=== PATIENT | female | born 1945 | race Caucasian/White ===

== ENCOUNTER → 2017-02-15 | Outpatient (CLI) | payer MEDICARE ==
--- NOTE | 2017-02-15 11:17 | RAD ---
DATE: 02/15/2017 EXAM: MAMMO SINA SCREENING BILATERAL HISTORY: Routine screening COMPARISON: 01/17/2016 This study was interpreted with the benefit of Computerized Aided Detection (CAD). FINDINGS: Breast Density: SCATTERED The breast parenchyma shows scattered fibroglandular densities. Breast parenchyma level B. There are no dominant suspicious masses, suspicious microcalcifications or evidence of architectural distortion. Small nodule identified in the left mid breast likely an intramammary lymph node similar to prior exam. IMPRESSION: Benign findings BI-RADS CATEGORY: 2 BENIGN FINDING RECOMMENDED FOLLOW-UP: 12M 12 MONTH FOLLOW-UP PQRS compliance statement: Patient information was entered into a reminder system with a target due date 02/15/2018 for the next mammogram. Mammography is a sensitive method for finding small breast cancers, but it does not detect them all and is not a substitute for careful clinical examination. A negative mammogram does not negate a clinically suspicious finding and should not result in delay in biopsying a clinically suspicious abnormality. "Our facility is accredited by the [employer]ammography [employer]."
== END | disposition home or self-care (01) ==
LOC: MAMMO 09:52
PROVIDERS: ATTEND Nurse Practitioner Family
DX: Z12.31 Encounter for screening mammogram for malignant neoplasm of breast (principal)
CPT/HCPCS: 77063; G0202; 77067

== ENCOUNTER → 2018-03-25 | Outpatient (CLI) | payer MEDICARE ==
--- NOTE | 2018-03-25 14:00 | RAD ---
DATE: 03/25/2018 EXAM: MAMMO SINA SCREENING BILATERAL HISTORY: Routine screening COMPARISON: 02/15/2017 This study was interpreted with the benefit of Computerized Aided Detection (CAD). Breast Density: SCATTERED The breast parenchyma shows scattered fibroglandular densities. Breast parenchyma level B. FINDINGS: There is an unchanged small smooth left breast nodule. No new or enlarging breast densities are seen. Benign type calcifications are present. No suspicious microcalcifications have developed. IMPRESSION: Stable mammograms without evidence of malignancy. BI-RADS CATEGORY: 2 BENIGN FINDING(S) RECOMMENDED FOLLOW-UP: 12M 12 MONTH FOLLOW-UP PQRS compliance statement: Patient information was entered into a reminder system with a target due date for the next mammogram. Mammography is a sensitive method for finding small breast cancers, but it does not detect them all and is not a substitute for careful clinical examination. A negative mammogram does not negate a clinically suspicious finding and should not result in delay in biopsying a clinically suspicious abnormality. "Our facility is accredited by the [employer] Mammography [employer]."
== END | disposition home or self-care (01) ==
LOC: MAMMO 11:02
PROVIDERS: ATTEND Physician Assistant Medical
DX: Z12.31 Encounter for screening mammogram for malignant neoplasm of breast (principal)
CPT/HCPCS: 77063; 77067

== ENCOUNTER → 2018-08-27 | Day surgery (SDC) | payer MEDICARE ==
[~2018-08-27] MED LIST: ALBUTEROL SULFATE 2.5 MG/3 ML NEBU. NEB PRN; ASPI81TA50 PO; ATROPINE 0.5 MG/5 ML DISP.SYRIN. IV PRN; CALC-157 PO; FISH12002 PO; LIDOCAINE 2% PF Vial for OR 5 ML VIAL. ONE; NALOXONE 0.4 MG/ML VIAL. IV PRN; ONDANSETRON PF 4 MG/2 ML VIAL. IV PRN; ONDANSETRON PF 4 MG/2 ML VIAL. ONE; PROPOFOL 10,000 MCG/ML (20ML) VIAL IV ONE; PROPOFOL 40 ML IV ONE; diphenhydrAMINE 50 MG/ML VIAL IV PRN
[2018-08-27] MEDS: IV RINGERS SOLUTION,LACTATED 1,000 ML IV SCH ×2 (12:15→12:45)
[2018-08-27 13:45] VITALS: BP 117/54
== END | disposition home or self-care (01) ==
LOC: SURG 11:56
PROVIDERS: ATTEND Internal Medicine Gastroenterology
DX: K57.30 Diverticulosis of large intestine without perforation or abscess without bleeding (principal); K21.9 Gastro-esophageal reflux disease without esophagitis; E78.5 Hyperlipidemia, unspecified; K56.699 Other intestinal obstruction unspecified as to partial versus complete obstruction; Z79.82 Long term (current) use of aspirin; Z79.899 Other long term (current) drug therapy; Z90.49 Acquired absence of other specified parts of digestive tract; Z90.710 Acquired absence of both cervix and uterus
CPT/HCPCS: 45380; 45381; J2405; J2704; J7120; J2001

== ENCOUNTER → 2018-09-03 | Outpatient (CLI) | payer MEDICARE ==
[2018-08-27 13:45] VITALS: BP 117/54
[~2018-09-03] MED LIST changes: -ALBUTEROL SULFATE 2.5 MG/3 ML NEBU. NEB PRN; -ATROPINE 0.5 MG/5 ML DISP.SYRIN. IV PRN; +IOHEXOL 240 MG/ML 50ML VIAL. ONE; +IOHEXOL 240 MG/ML 50ML VIAL. PO ONE; +IOHEXOL 300 MG/ML 75 ML VIAL. IV ONE; -LIDOCAINE 2% PF Vial for OR 5 ML VIAL. ONE; -NALOXONE 0.4 MG/ML VIAL. IV PRN; -ONDANSETRON PF 4 MG/2 ML VIAL. IV PRN; -ONDANSETRON PF 4 MG/2 ML VIAL. ONE; -PROPOFOL 10,000 MCG/ML (20ML) VIAL IV ONE; -PROPOFOL 40 ML IV ONE; -diphenhydrAMINE 50 MG/ML VIAL IV PRN
[2018-09-03 10:31] LABS: BASO # 0.1 x10^3/uL (0.0-0.2); BASO % 1 % (0-3); EOS # 0.1 x10^3/uL (0.0-0.7); EOS % 2 % (0-3); HEMATOCRIT 32.8 % (36.0-47.0); HEMOGLOBIN 10.4 g/dL (12.0-15.5); LYMPH # 1.7 x10^3/uL (1.0-4.8); LYMPH % 26 % (24-48); MEAN CORPUSCULAR HEMOGLOBIN 25 pg (25-35); MEAN CORPUSCULAR HGB CONC 32 g/dL (31-37); MEAN CORPUSCULAR VOLUME 80 fL (79-100); MONO # 0.5 x10^3/uL (0.0-1.1); MONO % 8 % (0-9); NEUT # 4.1 x10^3uL (1.8-7.7); NEUT % 63 % (31-73); PLATELET COUNT 304 x10^3/uL (140-400); RED BLOOD COUNT 4.12 x10^6/uL (3.50-5.40); RED CELL DISTRIBUTION WIDTH 15.7 % (11.5-14.5); WHITE BLOOD COUNT 6.5 x10^3/uL (4.0-11.0)
[2018-09-03 10:39] LABS: ALBUMIN 3.3 g/dL (3.4-5.0); ALBUMIN/GLOBULIN RATIO 0.8 (1.0-1.7); CALCIUM 9.1 mg/dL (8.5-10.1); CREATININE 1.1 mg/dL (0.6-1.0); GFR 48.6; POTASSIUM 4.1 mmol/L (3.5-5.1); TOTAL BILIRUBIN 0.3 mg/dL (0.2-1.0); TOTAL PROTEIN 7.2 g/dL (6.4-8.2)
--- NOTE | 2018-09-03 13:45 | RAD ---
CT CHEST ABD PELVIS W/CONTRAST Indication: FOUND COLON MASS ON RECENT COLONOSCOPY,
OMNI 240 30CC OMNI 300 75CC Exposure: One or more of the following individualized dose reduction techniques were utilized for this examination: 1. Automated exposure control 2. Adjustment of the mA and/or kV according to patient size 3. Use of iterative reconstruction technique. Technique: Intravenous contrast was given. Oral contrast was given. COMPARISON: None Chest Heterogeneous mass of the left thyroid lower pole measures approximately 15 mm. No significant lymph node enlargement. Mild coronary artery calcification. No pericardial effusion. No evidence of thoracic aortic aneurysm or calcification. Mild atherosclerotic calcifications. No large central pulmonary embolism. No pleural effusion. Calcified nodule left lung base compatible with a granuloma. Small noncalcified pulmonary nodule in the superior segment of the left lower lobe measures 4 mm, series 4, image 31. There are linear markings in both lung apices, likely scarring or fibrosis. Trachea and central airways are patent. Mild degenerative spurring of the spine. No evidence of aggressive bone destruction. Abdomen pelvis Liver and spleen appear unremarkable. Pancreas is unremarkable. No evidence of adrenal mass. Kidneys demonstrate symmetric enhancement without focal mass or hydronephrosis. Gallbladder is not well visualized. Aorta mildly calcified, no evidence of aneurysm. No significant lymph node enlargement. Small hiatal hernia. No evidence of bowel obstruction. Mild diverticulosis. No evidence of acute colitis. There is some stool throughout colon. There is more focal density in the ascending colon near the hepatic flexure, series 7, image 50, may just represent more focal stool. There is up to 5 cm. However, correlate with colonoscopy findings regarding location of the colonic mass. Appendix not clearly visualized but no evidence of acute appendicitis. Urinary bladder demonstrates no significant wall thickening. No evidence of pelvic mass. There are degenerative changes of the spine with stenosis. No evidence of destructive bone lesion. IMPRESSION:. 1. 15 mm left thyroid lesion, recommend ultrasound for further evaluation. 2. Small noncalcified pulmonary nodule in the left lung, measures 4 mm. Etiology uncertain, but metastatic nodule is possible. Recommend follow-up CT chest in 3-6 months. 3. Focal density within the superior aspect of the ascending colon may just represent focal stool, versus colonic mass. Correlate with colonoscopy findings. Electronically signed by: Geovany Bailey MD (09/03/2018 1:42 PM) [facility]
== END | disposition home or self-care (01) ==
LOC: CT 09:00
PROVIDERS: ATTEND Internal Medicine Gastroenterology
DX: K63.89 Other specified diseases of intestine (principal); E04.1 Nontoxic single thyroid nodule; R91.1 Solitary pulmonary nodule; K44.9 Diaphragmatic hernia without obstruction or gangrene; M48.00 Spinal stenosis, site unspecified; I25.10 Atherosclerotic heart disease of native coronary artery without angina pectoris; I70.0 Atherosclerosis of aorta
CPT/HCPCS: 36415; 71260; 74177; 80053; 82378; 85025; Q9967

== ENCOUNTER → 2019-03-31 | Outpatient (CLI) | payer MEDICARE ==
[2018-08-27 13:45] VITALS: BP 117/54
[~2019-03-31] MED LIST changes: -IOHEXOL 240 MG/ML 50ML VIAL. ONE; -IOHEXOL 240 MG/ML 50ML VIAL. PO ONE; -IOHEXOL 300 MG/ML 75 ML VIAL. IV ONE
--- NOTE | 2019-04-01 11:39 | RAD ---
DATE: 03/31/2019 11:20 AM EXAM: MAMMO SINA SCREENING BILATERAL HISTORY: Screening mammogram COMPARISON: March 25, 2018 and February 15, 2017 Bilateral CC and MLO views of the breasts were performed. Bilateral breast tomosynthesis was performed in CC and MLO projections. This study was interpreted with the benefit of Computerized Aided Detection (CAD). FINDINGS: Breast Density: SCATTERED The breast parenchyma shows scattered fibroglandular densities. Breast parenchyma level B Left breast intramammary lymph node, unchanged. No new suspicious masses, microcalcifications or architectural distortion is present to suggest malignancy in either breast. The visualized axillae are unremarkable. IMPRESSION: No mammographic evidence of malignancy. BI-RADS CATEGORY: 2 BENIGN FINDING(S) RECOMMENDED FOLLOW-UP: 12M 12 MONTH FOLLOW-UP Annual screening mammography is recommended, unless clinically indicated sooner based on symptoms or change in physical exam. PQRS compliance statement: Patient information was entered into a reminder system with a target due date one year for the next mammogram. Mammography is a sensitive method for finding small breast cancers, but it does not detect them all and is not a substitute for careful clinical examination. A negative mammogram does not negate a clinically suspicious finding and should not result in delay in biopsying a clinically suspicious abnormality. "Our facility is accredited by the [employer] Mammography Program."
== END | disposition home or self-care (01) ==
LOC: MAMMO 11:06
PROVIDERS: ATTEND Physician Assistant Medical
DX: Z12.31 Encounter for screening mammogram for malignant neoplasm of breast (principal)
CPT/HCPCS: 77063; 77067

== ENCOUNTER → 2019-06-03 | Outpatient (CLI) | payer MEDICARE ==
[2018-08-27 13:45] VITALS: BP 117/54
--- NOTE | 2019-06-03 13:10 | RAD ---
EXAM: Dual energy x-ray absorptiometry (DEXA). HISTORY: Postmenopausal female presents for osteoporosis screening. COMPARISON: 10/18/2010. TECHNIQUE: Dual energy x-ray absorptiometry of the lumbar spine and right hip was performed. Calculation of bone mineral density based on standard deviations above or below the expected young adult normal value (T-score) was completed. FINDINGS: The average bone mineral density in the 1st through 4th lumbar vertebrae is 0.985 g/cmxcm, corresponding with a T-score of -1.4. There has been a 6.1% increase in density of the lumbar spine compared to the prior study. The average total bone mineral density in the right hip is 0.722 g/cmxcm, corresponding with a T-score of -1.9. There has been a 3.3% decrease in density of the right hip compared to the prior study. The bone mineral density localized to the femoral neck corresponds with a T-score of -2.9. IMPRESSION: 1. Osteopenia measured at the lumbar spine and for the total right hip. 2. Osteoporosis localized to the right femoral neck. Note: Definitions established by the World Health Organization: 1. Normal: T-score is -1.0 or above. 2. Osteopenia: T-score is between -1.0 and -2.5 . 3. Osteoporosis: T-score is -2.5 or below. Electronically signed by: Elizabeth Lane MD (06/03/2019 1:07 PM) [email or web address]
== END | disposition home or self-care (01) ==
LOC: DXRAD 10:29
PROVIDERS: ATTEND Physician Assistant Medical
DX: M81.0 Age-related osteoporosis without current pathological fracture (principal); Z78.0 Asymptomatic menopausal state
CPT/HCPCS: 77080

== ENCOUNTER → 2019-06-25 | Outpatient (CLI) | payer MEDICARE ==
[2018-08-27 13:45] VITALS: BP 117/54
--- NOTE | 2019-06-25 12:49 | RAD ---
2 views the right foot without comparison for foot and ankle pain. FINDINGS: There is no fracture or acute osseous abnormality identified. There is a hallux valgus deformity, with some mild osteoarthritis about the first metatarsophalangeal joint. No other significant degenerative changes are seen. Vascular consultation are noted. There is a tiny dystrophic calcification anterior to the talus, doubtful clinical significance. IMPRESSION: 1. No fracture or acute osseous abnormality. 2. Hallux valgus deformity osteoarthritis of the first MTP. Electronically signed by: Jeffery Sandra MD (06/25/2019 12:46 PM) [facility]
--- NOTE | 2019-06-25 15:56 | RAD ---
Examination: 2 views of the right ankle HISTORY: History of pain COMPARISON: None available Findings/ impression: There is a tiny megan of bone identified dorsal to the talus could be a small avulsion fracture. The alignment of the ankle mortise grossly appears unremarkable. Electronically signed by: Joaquin Aguirre MD (06/25/2019 3:53 PM) [facility]
== END | disposition home or self-care (01) ==
LOC: PMG 11:32
PROVIDERS: ATTEND Physician Assistant Medical
DX: M20.11 Hallux valgus (acquired), right foot (principal); M19.071 Primary osteoarthritis, right ankle and foot; M25.871 Other specified joint disorders, right ankle and foot; M25.571 Pain in right ankle and joints of right foot
CPT/HCPCS: 73600; 73630

== ENCOUNTER → 2020-10-18 | Outpatient (CLI) | payer MEDICARE ==
[2018-08-27 13:45] VITALS: BP 117/54
[2020-10-18 11:28] LABS: BASO % 1 % (0-3); EOS # 0.1 x10^3/uL (0.0-0.7); EOS % 3 % (0-3); HEMATOCRIT 33.8 % (36.0-47.0); HEMOGLOBIN 11.3 g/dL (12.0-15.5); LYMPH # 0.8 x10^3/uL (1.0-4.8); LYMPH % 14 % (24-48); MEAN CORPUSCULAR HEMOGLOBIN 32 pg (25-35); MEAN CORPUSCULAR HGB CONC 33 g/dL (31-37); MEAN CORPUSCULAR VOLUME 96 fL (79-100); MONO # 0.4 x10^3/uL (0.0-1.1); MONO % 7 % (0-9); NEUT # 4.2 x10^3uL (1.8-7.7); NEUT % 76 % (31-73); PLATELET COUNT 169 x10^3/uL (140-400); RED BLOOD COUNT 3.52 x10^6/uL (3.50-5.40); RED CELL DISTRIBUTION WIDTH 15.9 % (11.5-14.5); WHITE BLOOD COUNT 5.6 x10^3/uL (4.0-11.0)
[2020-10-18 11:32] LABS: ALBUMIN 2.9 g/dL (3.4-5.0); CALCIUM 8.8 mg/dL (8.5-10.1); CREATININE 1.1 mg/dL (0.6-1.0); DIRECT BILIRUBIN 0.2 mg/dL (0.0-0.2); GFR 48.2; POTASSIUM 3.2 mmol/L (3.5-5.1); TOTAL BILIRUBIN 0.7 mg/dL (0.2-1.0)
== END ==
LOC: LAB 10:28
PROVIDERS: ATTEND Physician Assistant Medical
DX: R10.9 Unspecified abdominal pain (principal)
CPT/HCPCS: 36415; 80048; 80076; 82150; 83690; 85025

== ENCOUNTER → 2020-10-20 | Outpatient (CLI) | payer MEDICARE ==
[2018-08-27 13:45] VITALS: BP 117/54
--- NOTE | 2020-10-20 16:02 | RAD ---
EXAM: Abdomen and pelvis CT without intravenous contrast. HISTORY: Pain. Stent placement. TECHNIQUE: Computed tomographic images of the abdomen and pelvis were obtained without contrast. Mult iplanar reformatting was performed. *One or more of the following individualized dose reduction techniques were utilized for this examina tion: 1. Automated exposure control. 2. Adjustment of the mA and/or kV according to patient size. 3. Use of iterative reconstruction technique. COMPARISON: None. FINDINGS: Evaluation of the lower thorax demonstrates bilateral basilar atelectasis or scarring. Ther e is no infiltrate or pleural effusion. The heart is normal in size. There are paired biliary stents extending into the proximal duodenum. There is a small amount of associated pneumobilia. No suspiciou s hepatic lesion is seen on this noncontrast exam. No pancreatic lesion is seen on this noncontrast e xam. There is a splenule adjacent to an otherwise unremarkable spleen. The adrenal glands are unremar kable. The stomach is unremarkable. There is posterior superior left renal cortical scarring with adjacent parenchymal calcification or h emorrhagic cyst measuring 7 mm. There is a suspected punctate nontracking stones within lower pole th e right kidney. There is no appendicitis. There is evidence of partial bowel resection with a surgical anastomosis wi thin the right lower quadrant. There is moderate colonic stool. There is sigmoid diverticulosis. Ther e is mild rectal wall thickening with surrounding stranding, likely due to relative underdistention o r prior inflammation. There is no convincing acute colitis or proctitis. There is a small amount of p elvic free fluid. The uterus and ovaries are absent. There is heavily calcified atherosclerotic plaqu e involving the aorta and main aortic branch vessels. There is degenerative change throughout the spi ne. There is no acute or suspicious osseous lesion. IMPRESSION: 1. Paired biliary stents terminating within the proximal duodenum. 2. Distal colonic diverticulosis. 3. Left renal cortical scarring and suspected proximal calcification or a small hemorrhagic cyst. The re is also a punctate no destructive right renal stone. 4. Small amount of nonspecific pelvic free fluid. 5. Findings consistent with partial bowel resection. Electronically signed by: Elizabeth Lane MD (10/20/2020 4:00 PM) [id number]
== END ==
LOC: CT 12:44
PROVIDERS: ATTEND Physician Assistant Medical
DX: K57.30 Diverticulosis of large intestine without perforation or abscess without bleeding (principal); I70.0 Atherosclerosis of aorta; N28.89 Other specified disorders of kidney and ureter
CPT/HCPCS: 74176

== ENCOUNTER → 2020-11-08 | Outpatient (CLI) | payer MEDICARE ==
[2018-08-27 13:45] VITALS: BP 117/54
--- NOTE | 2020-11-08 11:19 | RAD ---
EXAM: RENAL/RETROPERITONAL ULTRASOUND. HISTORY: Dysuria, back pain, urinary tract infection. COMPARISON: 10/20/2020. FINDINGS: Ultrasound of the kidneys, bladder and retroperitoneum was performed. The right kidney measures 9.3 cm. Cortical thickness and echogenicity are preserved. There is no hydr onephrosis. The left kidney measures at least 8.3 cm. Cortical thickness and echogenicity are preserved. There is no hydronephrosis. A hypoechoic 13 x 11 x 8 mm mass at the upper pole corresponds with a dense focus on CT and likely reflects a complicated cyst. There is no internal perfusion on Doppler. The bladder is decompressed and not well seen. The abdominal aorta and inferior vena cava are grossly patent and normal in caliber. IMPRESSION: 1. A 13 mm hypoechoic lesion at the left renal upper pole likely corresponds with a complicated cyst on CT. This is most likely benign. Sonographic follow-up could be performed in 6 months if there is p ersistent concern. 2. No hydronephrosis. The bladder is decompressed and not well-visualized. Electronically signed by: Becky Menjivar MD (11/08/2020 11:16 AM) [id number]
== END ==
LOC: RAD 10:01
PROVIDERS: ATTEND Physician Assistant Medical
DX: R30.0 Dysuria (principal); N39.0 Urinary tract infection, site not specified; N28.9 Disorder of kidney and ureter, unspecified
CPT/HCPCS: 76770

== ENCOUNTER → 2020-12-14 | Outpatient (CLI) | payer MEDICARE ==
[2018-08-27 13:45] VITALS: BP 117/54
--- NOTE | 2020-12-14 10:15 | RAD ---
EXAM: Lumbar spine CT without contrast. HISTORY: Pain. TECHNIQUE: Computed tomographic images of the lumbar spine were obtained without contrast. Multiplana r reformatting was performed. *One or more of the following individualized dose reduction techniques were utilized for this examina tion: 1. Automated exposure control. 2. Adjustment of the mA and/or kV according to patient size. 3. Use of iterative reconstruction technique. COMPARISON: 10/20/2020. FINDINGS: There is a severe late subacute or chronic appearing wedge compression fracture of L1 with 3 mm retropulsion of the posterior superior cortex into the central canal. This is new compared to a CT performed 10/20/2020. There is lumbar levoscoliosis centered at L4. There is 3 mm retrolisthesis of L2 on L3. There is degenerative endplate remodeling at all levels. There is disc space narrowing pre dominantly along the right aspect of L3-L4 and left aspect of L4-L5, corresponding with the levels of maximum sclerotic concavity. There is sacralization of the L5 transverse processes, a normal variant . There is degenerative subchondral sclerosis and vacuum phenomenon involving the sacroiliac joints. There is a 2 mm nodule within the medial left lower lobe, likely benign based on size. There are pair ed biliary stents and there is a small amount of pneumobilia. There is aortic and aortic branch vesse l atherosclerosis. There are findings consistent with partial bowel resection. There is a small amoun t of free fluid within the pelvis. There is sigmoid diverticulosis. The bladder is nearly empty. Ther e is bilateral renal cortical lobulation likely due to scarring. There is fatty stranding and there a re foci of gas within the right buttock, likely due to a recent medication injection site. At T12-L1, there is a left lateral predominant disc bulge and endplate osteophytosis. There is slight retropulsion of the L1 cortex into the central canal. There is minimal central canal stenosis. At L1-L2, there is a disc bulge and endplate remodeling. There is no stenosis. At L2-L3, there is a disc bulge and endplate remodeling. There is mild facet arthropathy. There is re trolisthesis. There is mild central canal stenosis. At L3-L4, there is a right foraminal to extra foraminal disc protrusion with slight superior extrusio n and osteophyte complex superimposed on a right lateral predominant disc bulge and endplate osteophy tosis. There is mild right greater than left facet arthropathy. There is severe right and moderate le ft foraminal stenosis. There is mild central canal stenosis. At L4-L5, there are bilateral lateral recess to extra foraminal disc protrusions and osteophyte compl exes superimposed on a disc bulge and endplate osteophytosis. There is mild right and moderate left f acet arthropathy. There is moderate to severe bilateral foraminal stenosis. At L5-S1, there is mild bilateral facet arthropathy. There is no stenosis. IMPRESSION: 1. Severe late subacute or chronic appearing L1 compression fracture with slight retropulsion of the cortex into the central canal contributing to minimal central canal stenosis. This is new compared to the CT performed 10/20/2020. 2. Multilevel degenerative change throughout the lumbar spine, described in detail above. This result s in mild central canal stenosis at L2-L3, severe right and moderate left foraminal and mild central canal stenosis at L3-L4, and moderate to severe bilateral foraminal stenosis at L4-L5. 3. Lumbar scoliosis and slight retrolisthesis of L3 on L4. 4. Small amount of pelvic free fluid, a nonspecific finding. 5. Sigmoid diverticulosis. 6. Biliary stents. Electronically signed by: Elizabeth Lane MD (12/14/2020 10:13 AM) [id number]
== END ==
LOC: CT 09:10
PROVIDERS: ATTEND Physician Assistant Medical
DX: M47.817 Spondylosis without myelopathy or radiculopathy, lumbosacral region (principal); M51.25 Other intervertebral disc displacement, thoracolumbar region; M51.26 Other intervertebral disc displacement, lumbar region; M48.05 Spinal stenosis, thoracolumbar region; M41.86 Other forms of scoliosis, lumbar region; M43.16 Spondylolisthesis, lumbar region; M53.3 Sacrococcygeal disorders, not elsewhere classified; K57.30 Diverticulosis of large intestine without perforation or abscess without bleeding
CPT/HCPCS: 72131

== ENCOUNTER 2020-12-27 11:21 | Emergency (ER) | payer MEDICARE ==
[~2020-12-27] VITALS: Ht 154.9 cm; Wt 47.0 kg
[~2020-12-27 11:21] MED LIST changes: +LIDOCAINE (700MG/PATCH) PATCH. TD ONE
[2020-12-27 11:56] VITALS: BP 136/68
[2020-12-27] MEDS ORDERED: HYDROcodone/APAP 5/325MG 1 TAB TABLET PO ONE (12:15)
[2020-12-27] MEDS ORDERED: KETOROLAC 60 MG/2 ML VIAL. IM ONE (12:15)
[2020-12-27] MEDS ORDERED: HYDR-2759 PO (12:18)
--- NOTE | 2020-12-27 12:20 | PHYS DOC ---
Past History Additional Past Medical Histor: Chemo and radiation Past Surgical History: Cholecystectomy, Hysterectomy, Other Alcohol Use: None General Adult EDM: Chief Complaint: BACK PAIN OR INJURY HPI: HPI: Patient is a 75-year-old female who presents to the ER today for low back pain that is worse on the left side. She reports that she saw her primary care provider for this and had imaging done of her low back and she states that there was something wrong with her L1. Patient was given pain medication by her primary care provider. Patient was then seen in the urgent care 3 days ago and diagnosed with shingles. Patient was started on pain medication and Valtrex. She denies any injury, loss of bowel or bladder, saddle anesthesias, numbness or tingling in her extremities. Patient does have shingles outbreak to her left lower back that extends to her buttock. She describes the pain as a burning pain and she rates it 10 out of 10. Review of Systems: Review of Systems: 14 body systems of the review of systems have been reviewed. See HPI for pertinent positive and negative responses, otherwise all other systems are negative, nonpertinent or noncontributory Current Medications: Current Meds: Current Medications Medications (Trade) Dose Ordered Sig/Rohit Start Time Stop Time Status Last Admin Dose Admin Ketorolac Tromethamine (Toradol Im) 60 mg 1X ONCE 12/27/20 12:15 12/27/20 12:16 UNV Allergies: Allergies: Allergies Coded Allergies Type Severity Reaction Last Updated Verified No Known Drug Allergies 09/03/18 No Physical Exam: PE: Constitutional: Well developed, well nourished, no acute distress, non-toxic appearance. [] HENT: Normocephalic, atraumatic, bilateral external ears normal, oropharynx moist, no oral exudates, nose normal. [] Eyes: PERRLA, EOMI, conjunctiva normal, no discharge. [] Neck: Normal range of motion, no tenderness, supple, no stridor. [] Cardiovascular:Heart rate regular rhythm, no murmur [] Lungs & Thorax: Bilateral breath sounds clear to auscultation [] Abdomen: Bowel sounds normal, soft, no tenderness, no masses, no pulsatile masses. [] Skin: Warm, dry, no erythema, no rash. [] Back: No tenderness, no CVA tenderness. [] Extremities: No tenderness, no cyanosis, no clubbing, ROM intact, no edema. [] Neurologic: Alert and oriented X 3, normal motor function, normal sensory fu nction, no focal deficits noted. [] Psychologic: Affect normal, judgement normal, mood normal. [] Current Patient Data: Vital Signs: Vital Signs Date Time Temp Pulse Resp B/P (MAP) Pulse Ox O2 Delivery O2 Flow Rate FiO2 12/27/20 11:56 97.4 70 12 136/68 98 Room Air EKG: EKG: [] Radiology/Procedures: Radiology/Procedures: PROCEDURE: LUMBAR SPINE 2-3V XR LUMBAR SPINE 2-3V Clinical Indication: Reason: LOW BACK PAIN Comparison: CT lumbar spine without contrast December 14, 2020. Findings: AP and lateral views. There is moderate old compression fracture superior endplate of L1. Mild retropulsion superiorly is unchanged. No acute compression fracture is identified. Mild left convexity lumbar scoliosis, unchanged. Degenerative endplate spurring. The alignment is stable. No obvious abnormality of the visualized pelvic bones. Atherosclerotic abdominal aorta. Redemonstrated right and left biliary stents. IMPRESSION: 1. No acute fracture is identified radiographically. 2. Old fracture of the L1 vertebral body. 3. Mild left convexity lumbar scoliosis. Electronically signed by: Kaden Chavez MD (12/27/2020 12:42 PM) [id number] DICTATED AND SIGNED BY: KADEN CHAVEZ MD DATE: 12/27/20 1237 CC: EMERGENCY,DEPARTMENT; OPAL KHALIL APRN; ANTELMO MCKEON PA ~MTH0 0 Heart Score: C/O Chest Pain: No Risk Factors: Risk Factors: DM, Current or recent (<one month) smoker, HTN, HLP, family history of CAD, obesity. Risk Scores: Score 0 - 3: 2.5% MACE over next 6 weeks - Discharge Home Score 4 - 6: 20.3% MACE over next 6 weeks - Admit for Clinical Observation Score 7 - 10: 72.7% MACE over next 6 weeks - Early Invasive Strategies Course & Med Decision Making: Course & Med Decision Making Pertinent Labs and Imaging studies reviewed. (See chart for details) Patient is a 75-year-old female being seen for low back pain that is worse in the left side. An x-ray was performed of her lumbar spine and it showed a chronic L1 fracture. Patient was treated with pain medication in the ER. She was also given a lidocaine patch. It is likely that patient's pain is due to her shingles outbreak. She is already taking Valtrex. She was discharged home with pain medication and told to follow-up with her primary care provider tomorrow. I discussed with patient all findings and diagnostic testing as well as the need to follow-up with PCP for further evaluation and treatment or return to the ER if any new or worsening symptoms. Strict return precautions were also discussed at length. Patient voiced understanding and agreement with the plan. Patient is hemodynamically stable at the time of disposition. Dragon Disclaimer: Dragon Disclaimer: This electronic medical record was generated, in whole or in part, using a voice recognition dictation system. Departure Departure: Impression: Primary Impression: Shingles Qualified Codes: B02.9 - Zoster without complications Additional Impression: Low back pain Qualified Codes: M54.5 - Low back pain; G89.29 - Other chronic pain Disposition: HOME / SELF CARE / HOMELESS Condition: GOOD Referrals: ANTELMO MCKEON (PCP) Patient Instructions: Back Pain, Adult, Shingles Additional Instructions: You were seen in the ER today for low back pain that is worse on the right side that radiates into your buttock. This is the site of your shingles outbreak. You are prescribed Valtrex by the urgent care and please continue to take this, this is an antiviral. Shingles pain can be very painful. This is treated with anti-inflammatory medications like ibuprofen/naproxen. An x-ray was performed of your low back. This showed an old L1 fracture. You were treated for your pain in the ER with anti-inflammatory medications and Cushing. You were also given a lidocaine patch for your low back pain. You are being sent home with a prescription for Cushing. This medication is hydrocodone and Tylenol combination tablet. Please caution taking this medication as it does contain hydrocodone and may cause drowsiness. Not take this medication when you need to be alert. Do not take this medication with anything that is sedating such as alcohol. You need to follow-up with your primary care provider tomorrow regarding your ER visit today. If your symptoms worsen or you develop decreased sensation in your extremities, fever, loss of bowel or bladder, inability to walk please return to the ER immediately. EMERGENCY DEPARTMENT GENERAL DISCHARGE INSTRUCTIONS Thank you for coming to [facility] (ED) today and trusting us with you care. We trust that you had a positivie experience in our Emergency Department. If you wish to speak to the department management, you may call the director at [phone]. YOUR FOLLOW UP INSTRUCTIONS ARE FOLLOWS: 1. Do you have a private Doctor? If you do not have a private doctor, please ask for a resource list of physicians or clinics that may be able to assist you with follow up care. 2. The Emergency Physician has interpreted your x-rays. The X-Ray specialist will also review them. If there is a change in the findings, you will be notified in 48 hours when at all possible. 3. A lab test or culture has been done, your results will be reviewed and you will be notified if you need a change in treatment. ADDITIONAL INSTRUCTIONS AND INFORMATION: 1. Your care today has been supervised by a physician who is specially trained in emergency care. Many problems require more than one evaluation for a complete diagnosis and treatment. We recommend that you schedule your follow up appointment as recommended to ensure complete treatment of you illness or injury. If you are unable to obtain follow up care and continue to have a problem, or if your condition worsens, we recommend that you return to the ED. 2. We are not able to safely determine your condition over the phone nor are we able to give sound medical advice over the phone. For these safety reasons, if you call for medical advice we will ask you to come to the ED for further evaluation. 3. If you have any questions regarding these discharge instructions please call the ED at [phone]. SAFETY INFORMATION: In the interest of safety, wellness, and injury prevention; we encourage you to wear your sealbelt, if you smoke; quite smoking, and we encourage family to use a protective helmet for bicycling and other sporting events that present an increased risk for head injury. IF YOUR SYMPTOMS WORSEN OR NEW SYMPTOMS DEVELOP, OR YOU HAVE CONCERNS ABOUT YOUR CONDITION; OR IF YOUR CONDITION WORSENS WHILE YOU ARE WAITING FOR YOUR FOLLOW UP APPOINTMENT; EITHER CONTACT YOUR PRIMARY CARE DOCTOR, THE PHYSICIAN WHOSE NAME AND NUMBER YOU WERE GIVEN, OR RETURN TO THE ED IMMEDIATELY. Scripts Hydrocodone/Acetaminophen (Hydrocodone-Acetamin 5-325 mg) 1 Each Tablet 1 EACH PO Q6HRS for LOW BACK PAIN for 2 Days, #8 TAB 0 Refills Prov: OPAL KHALIL APRN 12/27/20 OPAL KHALIL APRN Dec 27, 2020 12:20
--- NOTE | 2020-12-27 12:45 | RAD ---
XR LUMBAR SPINE 2-3V Clinical Indication: Reason: LOW BACK PAIN Comparison: CT lumbar spine without contrast December 14, 2020. Findings: AP and lateral views. There is moderate old compression fracture superior endplate of L1. Mild retrop ulsion superiorly is unchanged. No acute compression fracture is identified. Mild left convexity lumb ar scoliosis, unchanged. Degenerative endplate spurring. The alignment is stable. No obvious abnormal ity of the visualized pelvic bones. Atherosclerotic abdominal aorta. Redemonstrated right and left bi liary stents. IMPRESSION: 1. No acute fracture is identified radiographically. 2. Old fracture of the L1 vertebral body. 3. Mild left convexity lumbar scoliosis. Electronically signed by: Kaden Chowdhury MD (12/27/2020 12:42 PM) [id number]
[2020-12-27] MEDS ORDERED: PATCH REMOVAL. MC SCH (21:00)
== END 2020-12-27 13:06 | disposition home or self-care (01) ==
LOC: ER 11:21
DX: B02.9 Zoster without complications (principal); M54.5 Low back pain; G89.29 Other chronic pain
CPT/HCPCS: 72100; 99283